=== PATIENT | male | born 1975 | race Caucasian/White ===

== ENCOUNTER 2017-02-15 09:58 | Emergency (ER) | payer OTHER ==
[2017-02-15 11:11] VITALS: BP 120/67
== END 2017-02-15 11:11 | disposition home or self-care (01) ==
LOC: ED 09:58
DX: J20.9 Acute bronchitis, unspecified (principal); R03.0 Elevated blood-pressure reading, without diagnosis of hypertension
CPT/HCPCS: J7613; J7644; Q0092

== ENCOUNTER 2017-06-07 10:27 | Emergency (ER) | payer OTHER ==
[~2017-06-07] VITALS: Ht 162.6 cm; Wt 83.0 kg
[2017-06-07 11:15] VITALS: BP 132/104
== END 2017-06-07 11:15 | disposition home or self-care (01) ==
LOC: ED 10:27
DX: J20.9 Acute bronchitis, unspecified (principal); J02.9 Acute pharyngitis, unspecified